=== PATIENT | male | born 1960 | race Asian ===

== ENCOUNTER 2017-08-24 13:10 | Emergency (ER) | payer BC ==
[~2017-08-24] VITALS: Ht 170.2 cm; Wt 68.0 kg
[2017-08-24 13:14] VITALS: BP 112/79
[2017-08-24] MEDS ORDERED: LIDOCAINE HCL 1% 20ML VIAL (Pyxis) INJ MC ONE (13:30)
[2017-08-24] MEDS ORDERED: BACITRACIN ZINC OINT UDPKT TOP ONE (13:30)
[2017-08-24] MEDS ORDERED: LIDOCAINE HCL/PF 1% 10 MG/ML 5ML VIAL IJ ONE (14:15)
== END 2017-08-24 15:14 | disposition home or self-care (01) ==
LOC: ER 13:49
DX: S81.011A Laceration without foreign body, right knee, initial encounter (principal); W26.0XXA Contact with knife, initial encounter; Y93.89 Activity, other specified; Y99.8 Other external cause status; Y92.89 Other specified places as the place of occurrence of the external cause; Z88.0 Allergy status to penicillin; Z98.890 Other specified postprocedural states
CPT/HCPCS: 12002; 99283; J3490; Z7610